=== PATIENT | male | born 2000 | race American Indian/Alaskan Native ===

== ENCOUNTER 2018-07-16 21:02 | Emergency (ER) | payer OTHER ==
[2018-07-16] MEDS ORDERED: TYLENOL PO ONE (21:41)
[2018-07-16] MEDS ORDERED: ZOFRAN ODT PO ONE (21:41)
--- NOTE | 2018-07-16 21:41 | Emergency Department Report ---
Chief Complaint: Headache Stated Complaint: HEADACHE/EMESIS Time Seen by Provider: 07/16/18 21:38 - HPI History of Present Illness: pt presents with a frontal FINE that began 6 days ago mother has hx migraines denies any PMHx of migraines been taking goody powder +N/V +photophobia no vision changes denies getting hit in the head no sore throat +cough with phelgm x 6 days fever at home last took ibuprofen 2 hours ago PMHx hernia no allergies to medications +smoker +marijuana non drinker MSE screening note: Focused history and physical exam performed. Due to findings the following was ordered: Ct head, CXR ED Disposition for MSE Condition: Stable
[2018-07-16] MEDS ORDERED: ZOFRAN ODT ONE (21:44)
[2018-07-16] MEDS ORDERED: TYLENOL ONE (21:44)
[2018-07-16 22:02] LABS: Basophils % (Auto) 0.4 % (0.0-1.8); Eosinophils % (Auto) 0.2 % (0.0-4.3); Hematocrit 43.5 % (35.5-45.6); Hemoglobin 14.4 gm/dl (11.8-15.2); Lymphocytes % (Auto) 11.5 % (13.4-35.0); Mean Corpuscular HGB Conc 33 % (32-34); Mean Corpuscular Volume 78 fl (84-94); Monocytes # (Auto) 0.8 K/mm3 (0.0-0.8); Monocytes % (Auto) 9.6 % (0.0-7.3); Platelet Count 200 K/mm3 (140-440); Red Cell Distribution Width 14.1 % (13.2-15.2)
[2018-07-16 22:22] LABS: BUN/Creatinine Ratio 12; Blood Urea Nitrogen 11 mg/dL (9-20); Calcium 9.5 mg/dL (8.4-10.2); Hemolysis Index 17
--- NOTE | 2018-07-16 23:14 | XRay Report ---
PROCEDURE: XR CHEST ROUTINE 2V TECHNIQUE: PA and lateral chest radiographs were obtained. HISTORY: cough, fever COMPARISONS: None. FINDINGS: Heart: Normal. Mediastinum/Vessels: Normal. Lungs/Pleural space: Normal. Bony thorax: No acute osseous abnormality. IMPRESSION: Normal examination. This document is electronically signed by Rocio Ward DO., Jul 16 2018 11:12:48 PM ET
[2018-07-17] MEDS ORDERED: ZOFRAN IV ONE (01:10)
[2018-07-17] MEDS ORDERED: SUBLIMAZE IV ONE (01:10)
[2018-07-17] MEDS ORDERED: NACL 0.9% 1000 ML 1,000 ML IV ONE (01:10)
--- NOTE | 2018-07-17 01:15 | Emergency Department Report ---
HPI - General Chief Complaint: Headache Time Seen by Provider: 07/16/18 21:38 - HPI HPI: Room 22 The patient is a 18-year-old male presenting with chief complaint of headache and abdominal pain. Patient states his symptoms began 6 days ago with a frontal headache that has been constant and associated with nausea and vomiting. The patient has had a cough past 4-5 days that has been mostly nonproductive until today. Today the patient produced yellow sputum. Patient states today he also developed periumbilical abdominal pain that has been constant. The patient gives his abdominal pain score 7-8/10 and his headache is 3-4/10 Location: Head, abdomen Duration: [See above] Quality: Pain Severity: [See above] Modifying factors: [see above] Context: [see above] Mode of transportation: [not driving] ED Past Medical Hx - Past Medical History Previous Medical History?: Yes Additional medical history: hernia - Surgical History Past Surgical History?: No - Family History Family history: no significant - Social History Smoking Status: Current Every Day Smoker (1/2 pack per day) Substance Use Type: None - Medications Home Medications: Home Medications Medication Instructions Recorded Confirmed Last Taken Type Ciprofloxacin HCl [Ciprofloxacin 500 mg PO Q12H #14 tab 07/17/18 Unknown Rx TAB] HYDROcodone/APAP 5-325 [Ross 1 each PO Q6HR PRN #10 tablet 07/17/18 Unknown Rx 5/325] Ibuprofen [Motrin 800 MG tab] 800 mg PO Q8HR PRN #20 tablet 07/17/18 Unknown Rx ED Review of Systems ROS: Stated complaint: HEADACHE/EMESIS Other details as noted in HPI Constitutional: fever Eyes: denies: eye pain ENT: denies: throat pain Respiratory: no symptoms reported Cardiovascular: denies: chest pain Endocrine: no symptoms reported Gastrointestinal: abdominal pain, nausea, vomiting Genitourinary: denies: dysuria Musculoskeletal: denies: back pain Neurological: headache Physical Exam - Physical Exam Vital Signs: Vital Signs 07/16/18 07/16/18 07/17/18 21:11 21:39 00:15 Temperature 101.3 F H 101.3 F H Pulse Rate 95 H 100 H 81 Respiratory 18 18 18 Rate Blood Pressure 133/73 133/73 Blood Pressure 106/56 [Left] O2 Sat by Pulse 96 97 97 Oximetry Physical Exam: GENERAL: The patient is well-developed well-nourished male lying on stretcher not appearing to be in acute distress. [] HEENT: Normocephalic. Atraumatic. Extraocular motions are intact. Patient has moist mucous membranes. NECK: Supple. Patient complains of pain to the left side of his neck when flexed CHEST/LUNGS: Clear to auscultation. There is no respiratory distress noted. HEART/CARDIOVASCULAR: Regular. There is no tachycardia. There is no gallop rub or murmur. ABDOMEN: Abdomen is soft, with tenderness to palpation in the right upper quadrant, suprapubic and left lower quadrant. There is no rebound or guarding. Patient has normal bowel sounds. There is no abdominal distention. SKIN: There is no rash. There is no edema. There is no diaphoresis. NEURO: The patient is awake, alert, and oriented. The patient is cooperative. The patient has no focal neurologic deficits. The patient has normal speech. Cranial nerves II through XII grossly intact, no drift MUSCULOSKELETAL: There is no evidence of acute injury. ED Course Vital Signs 07/16/18 07/16/18 07/17/18 21:11 21:39 00:15 Temperature 101.3 F H 101.3 F H Pulse Rate 95 H 100 H 81 Respiratory 18 18 18 Rate Blood Pressure 133/73 133/73 Blood Pressure 106/56 [Left] O2 Sat by Pulse 96 97 97 Oximetry - Lumbar Puncture Consent Obtained: verbal consent Time Out Performed: No Indication for Procedure: headache, fever work up Patient Position: Sitting Upright/Leaning F Skin Prep: Povidone-Iodine 1% Local Anesthetic Used: Lidocaine 1% Amount of anesthesia used (mls): 6 Spinal Needle Gauge: 20G Spinal Needle Length: 3.5in Interspace Used: L4-L5 Fluid Initially Obtained: clear Complications: none Patient Tolerated Procedure: well, no complications ED Medical Decision Making - Lab Data Result diagrams: 07/16/18 21:48 07/16/18 21:48 Laboratory Tests 07/16/18 07/16/18 07/17/18 21:48 21:48 04:40 WBC 8.7 RBC 5.60 H Hgb 14.4 Hct 43.5 MCV 78 L MCH 26 L MCHC 33 RDW 14.1 Plt Count 200 Lymph % (Auto) 11.5 L [place] % (Auto) 9.6 H Eos % (Auto) 0.2 Baso % (Auto) 0.4 Lymph # 1.0 L [place] # 0.8 Eos # 0.0 Baso # 0.0 Seg Neutrophils % 78.3 H Seg Neutrophils # 6.8 Sodium 133 L Potassium 4.2 Chloride 95.6 L Carbon Dioxide 21 L Anion Gap 21 BUN 11 Creatinine 0.9 Estimated GFR > 60 BUN/Creatinine Ratio 12 Glucose 94 Calcium 9.5 Urine Color Urine Turbidity Urine pH Ur Specific [place] Urine Protein Urine Glucose (UA) Urine Ketones Urine Blood Urine Nitrite Urine Bilirubin Urine Urobilinogen Ur Leukocyte Esterase Urine WBC (Auto) Urine RBC (Auto) Urine Mucus CSF Appearance Clear CSF Color Colorless CSF WBC 1 CSF RBC 37.4 CSF Seg Neutrophils 8.3 CSF Lymphocytes % 83.3 CSF Reactive Lymphs Not Reportable CSF Monocytes % 8.3 CSF Eosinophils % Not Reportable CSF Basophils Not Reportable CSF Pathologist Review C CSF Glucose CSF Total Protein 07/17/18 07/17/18 07/17/18 04:40 04:40 Unknown WBC RBC Hgb Hct MCV MCH MCHC RDW Plt Count Lymph % (Auto) [place] % (Auto) Eos % (Auto) Baso % (Auto) Lymph # [place] # Eos # Baso # Seg Neutrophils % Seg Neutrophils # Sodium Potassium Chloride Carbon Dioxide Anion Gap BUN Creatinine Estimated GFR BUN/Creatinine Ratio Glucose Calcium Urine Color Yellow Urine Turbidity Clear Urine pH 5.0 Ur Specific [place] 1.011 Urine Protein <15 mg/dl Urine Glucose (UA) Neg Urine Ketones 20 Urine Blood Neg Urine Nitrite Neg Urine Bilirubin Neg Urine Urobilinogen < 2.0 Ur Leukocyte Esterase Neg Urine WBC (Auto) 1.0 Urine RBC (Auto) 3.0 Urine Mucus Few CSF Appearance Clear CSF Color Colorless CSF WBC 1 CSF RBC 2 CSF Seg Neutrophils Not Reportable CSF Lymphocytes % 78.6 CSF Reactive Lymphs Not Reportable CSF Monocytes % 21.4 CSF Eosinophils % Not Reportable CSF Basophils Not Reportable CSF Pathologist Review C CSF Glucose 63 CSF Total Protein 22 - Radiology Data Radiology results: report reviewed (CT head, CT abdomen and pelvis), image reviewed (CT head, CT abdomen and pelvis) [facility] [address] [place] [address] Cat Scan Report Signed Patient: MARYJO CHRISTIANSON JR MR#: [id number] : 2000 Acct:[id number] Age/Sex: 18 / M ADM Date: 07/16/18 Loc: ED Attending Dr: Ordering Physician: GURDEEP LANDEROS Date of Service: 07/17/18 Procedure(s): CT head/brain wo con Accession Number(s): [id number] cc: GURDEEP LANDEROS PROCEDURE: CT HEAD/BRAIN WO CON TECHNIQUE: Computerized tomography of the head was performed without contrast material. HISTORY: FINE x 6 days COMPARISONS: None . FINDINGS: Skull and scalp: Normal . Paranasal sinuses: Mild opacification of the sinuses . Ventricles and subarachnoid spaces: Normal . Cerebrum: No evidence of hemorrhage, acute infarction or mass . Cerebellum and brainstem: No evidence of hemorrhage, acute infarction or mass . Vasculature: Normal . Other: None . ASPECTS: 10 IMPRESSION: There is no evidence of an acute intracranial process. . This document is electronically signed by Rocio Ward DO., Jul 17 2018 03:59:11 AM ET Transcribed By: [facility] Dictated By: ROCIO WARD MD Electronically Authenticated By: ROCIO WARD MD Signed Date/Time: 07/17/18400 DD/ 4 TD/TT: 07/17/18354 [facility] [address] [place] [address] Cat Scan Report Signed Patient: MARYJO CHRISTIANSON JR MR#: [id number] : 2000 Acct:[id number] Age/Sex: 18 / M ADM Date: 07/16/18 Loc: ED Attending Dr: Ordering Physician: JULIANNE EPPERSON MD Date of Service: 07/17/18 Procedure(s): CT abdomen pelvis w con Accession Number(s): [id number] cc: JULIANNE EPPERSON MD PROCEDURE: CT ABDOMEN PELVIS W CON TECHNIQUE: Computerized axial tomography of the abdomen and pelvis was performed after the IV injection of iodinated nonionic contrast. HISTORY: periumbilical abdominal pain, fever COMPARISONS: None . FINDINGS: Visualized lower thorax: No significant abnormality. Liver: Normal size and attenuation. Spleen: Normal size and attenuation. Gallbladder and biliary system: Normal. Pancreas: Normal. Adrenals: Normal. Kidneys: Both kidneys have a normal size. No hydronephrosis. No renal stones or masses. GI tract: No obstruction. No ileus or enteritis. The cecum, appendix and colon are normal. . Lymph nodes and mesentery: Normal. Vasculature: Normal.. Bladder: Normal. Reproductive organs: Normal. Peritoneum: No free fluid. Musculoskeletal structures: No significant abnormality. Other: None . IMPRESSION: Normal examination of the abdomen and pelvis . This document is electronically signed by Rocio Ward DO., Jul 17 2018 04:31:35 AM ET Transcribed By: [facility] Dictated By: ROCIO WARD MD Electronically Authenticated By: ROCIO WARD MD Signed Date/Time: 07/17/18 0434 DD/ 9 TD/TT: 07/17/18109 - Differential Diagnosis sinusitis, pneumonia, gastritis, meningitis Critical care attestation.: If time is entered above; I have spent that time in minutes in the direct care of this critically ill patient, excluding procedure time. ED Disposition Clinical Impression: Acute bronchitis, Fever, Headache, Abdominal pain Disposition: - TO HOME OR SELFCARE Is pt being admited?: No Does the pt Need Aspirin: No Condition: Stable Instructions: Acute Bronchitis (ED) Prescriptions: Ciprofloxacin HCl [Ciprofloxacin TAB] 500 mg PO Q12H #14 tab Ibuprofen [Motrin 800 MG tab] 800 mg PO Q8HR PRN #20 tablet PRN Reason: Pain, Moderate (4-6) HYDROcodone/APAP 5-325 [Ross 5/325] 1 each PO Q6HR PRN #10 tablet PRN Reason: Pain Referrals: RICARDA GRIGGS MD [Primary Care Provider] - 3-5 Days
[2018-07-17 02:22] LABS: Bilirubin,Urine NEG (Negative); Blood,Urine NEG (Negative); Color,Urine Yellow (Yellow); Mucus,Urine FEW /HPF; Protein,Urine <15 mg/dL mg/dL (Negative); Urobilinogen,Urine < 2.0 mg/dL (<2.0)
--- NOTE | 2018-07-17 04:01 | Cat Scan Report ---
PROCEDURE: CT HEAD/BRAIN WO CON TECHNIQUE: Computerized tomography of the head was performed without contrast material. HISTORY: FINE x 6 days COMPARISONS: None . FINDINGS: Skull and scalp: Normal . Paranasal sinuses: Mild opacification of the sinuses . Ventricles and subarachnoid spaces: Normal . Cerebrum: No evidence of hemorrhage, acute infarction or mass . Cerebellum and brainstem: No evidence of hemorrhage, acute infarction or mass . Vasculature: Normal . Other: None . ASPECTS: 10 IMPRESSION: There is no evidence of an acute intracranial process. . This document is electronically signed by Rocio Ward DO., Jul 17 2018 03:59:11 AM ET
[2018-07-17] MEDS ORDERED: XYLOCAINE 1%/ EPI 1:100,000 INFILTRATI ONE (04:23)
--- NOTE | 2018-07-17 04:34 | Cat Scan Report ---
PROCEDURE: CT ABDOMEN PELVIS W CON TECHNIQUE: Computerized axial tomography of the abdomen and pelvis was performed after the IV inject ion of iodinated nonionic contrast. HISTORY: periumbilical abdominal pain, fever COMPARISONS: None . FINDINGS: Visualized lower thorax: No significant abnormality. Liver: Normal size and attenuation. Spleen: Normal size and attenuation. Gallbladder and biliary system: Normal. Pancreas: Normal. Adrenals: Normal. Kidneys: Both kidneys have a normal size. No hydronephrosis. No renal stones or masses. GI tract: No obstruction. No ileus or enteritis. The cecum, appendix and colon are normal. . Lymph nodes and mesentery: Normal. Vasculature: Normal.. Bladder: Normal. Reproductive organs: Normal. Peritoneum: No free fluid. Musculoskeletal structures: No significant abnormality. Other: None . IMPRESSION: Normal examination of the abdomen and pelvis . This document is electronically signed by Rocio Ward DO., Jul 17 2018 04:31:35 AM ET
[2018-07-17 04:40] VITALS: BP 112/70
[2018-07-17 05:06] LABS: Glucose,CSF 63 mg/dL
[2018-07-17 05:54] LABS: Appearance,CSF Clear; Red Blood Cell,CSF 37.4 /mm3 (0-0); White Blood Cell,CSF 1 /mm3 (1-10)
[2018-07-17 06:22] LABS: Appearance,CSF Clear; Red Blood Cell,CSF 2 /mm3 (0-0); White Blood Cell,CSF 1 /mm3 (1-10)
[2018-07-17 06:41] LABS: Total Cells Counted 12 /mm3
[2018-07-17 06:45] LABS: Total Cells Counted 14 /mm3
== END 2018-07-17 06:44 | disposition home or self-care (01) ==
LOC: ED 21:02
DX: J20.9 Acute bronchitis, unspecified (principal); R10.9 Unspecified abdominal pain; R11.2 Nausea with vomiting, unspecified; F17.200 Nicotine dependence, unspecified, uncomplicated
CPT/HCPCS: 36415; 62270; 70450; 71046; 74177; 80048; 81001; 82947; 84160; 85025; 87116; 89051; 96361; 96374; 96375; 99284; J2405; J3010; J7030; Q9967; Q0162